=== PATIENT | female | born 1960 | race Caucasian/White ===

== ENCOUNTER 2017-02-08 07:35 | Emergency (ER) | payer MEDICAID, OTHER ==
[~2017-02-08] VITALS: Ht 167.6 cm; Wt 79.0 kg
[~2017-02-08 07:35] MED LIST: LISI-363 PO
[2017-02-08 07:36] VITALS: BP 175/101; PULSE 90; RESP 21; TEMP 97.7; O2SAT 98
--- NOTE | 2017-02-08 07:49 | PD ---
HPI . right upper arm pain x 1 week Chief Complaint: Pain: Acute or Chronic Time Seen by Provider: 07:48 Travel History International Travel<30 days: No Contact w/Intl Traveler<30days: No Traveled to known affect area: No History of Present Illness HPI 57 yr old female here c/o right upper arm pain x 1 week. She was seen at [facility], where she was dx with pinched nerve and given narcotic pain medication. She says she does not like narcotics and she is getting no relief for the medications. She has seen an urgent care a few times for this and was given toradol with minimal relief. She does not currently have a primary care provider. She denies any recent injury. She has no other complaints. [facility] Past Medical History Cancer: No Cardiovascular Problems: No Diabetes: No Hepatitis: No Hiatal Hernia: No Hypertension: Yes Thyroid Disease: No Past Surgical History Gynecologic Surgery: Yes (HYSTERECTOMY) Hysterectomy: Yes Other Surgery: Yes Social History Alcohol Use: No Tobacco Use: No Substance Use: No Allergies-Medications (Allergen,Severity, Reaction): Coded Allergies: No Known Allergies (Unverified , 05/31/14) Reported Meds & Prescriptions Reported Meds & Active Scripts Active Prednisone 50 Mg Tab 50 Mg PO DAILY Flexeril (Cyclobenzaprine HCl) 5 Mg Tab 5 Mg PO TID Reported Lisinopril 20 mg (Lisinopril) 20 Mg Tab 20 Mg PO DAILY Review of Systems General / Constitutional: No: Fever Eyes: No: Visual changes HENT: No: Headaches Cardiovascular: No: Chest Pain or Discomfort Respiratory: No: Shortness of Breath Gastrointestinal: No: Abdominal Pain Genitourinary: No: Dysuria Musculoskeletal: Positive: Pain (right arm) Skin: No Rash Neurologic: No: Weakness Psychiatric: No: Depression Endocrine: No: Polydipsia Hematologic/Lymphatic: No: Easy Bruising Physical Exam Narrative GENERAL: AAO x 3, no acute distress, Well-nourished, well-developed patient. SKIN: Warm and dry. No visible rashes or bruising. HEAD: Normocephalic and atraumatic. EYES: No scleral icterus. No injection or drainage. ENT: No nasal drainage noted. Mucous membranes pink. Airway patent. NECK: Supple, trachea midline. No JVD. tenderness in right side trapezius CARDIOVASCULAR: Regular rate and rhythm without murmurs, gallops, or rubs. RESPIRATORY: Breath sounds equal bilaterally. No accessory muscle use. No rhonchi or rales. GASTROINTESTINAL: visual inspection normal EXTREMITIES: No cyanosis or edema. FUll ROM b/l UE. BACK: Nontender without obvious deformity. No CVA tenderness. NEURO: CN II-12 intact, grounds/maintenance specialist strength normal b/l, UE and LE 5/5, PSYCH: AAO x 3, normal affect. Data Data Last Documented VS Vital Signs Date Time Temp Pulse Resp B/P Pulse Ox O2 Delivery O2 Flow Rate FiO2 02/08/17 08:11 20 02/08/17 07:36 97.7 90 175/101 98 Orders Orphenadrine Inj (Norflex Inj) (02/08/17 08:00) MDM Medical Decision Making Medical Screen Exam Complete: Yes Emergency Medical Condition: Yes Medical Record Reviewed: Yes Differential Diagnosis cervical strain, muscle strain, cervical radiculopathy Narrative Course 57 yr old female here with right arm pain. Her bp is elevated and likely related to increased pain. Exam reveals possible pinched nerve, cervical radiculopathy. Norflex for pain in the ED. Will discharge home with muscle relaxers and steroids. Discussed that she will need primary care. Advised f/u regarding bp and discussed she may need MRI imaging if this persists. Patient verbalized understanding of instructions, questions were answered, and thanked me for their care. I advised them if their condition worsens, please return to the nearest emergency room for further care. Prior to discharge, patient requesting a note for work as she missed over 1 week. I advised her that was something I could not do. Diagnosis Primary Impression: Right upper limb pain Patient Instructions: General Instructions Additional Instructions: Please return to emergency department if your symptoms return or worsen. Follow up with your primary care provider. Take medications as prescribed. Please follow your primary care doctor as you may need further workup and treatment. Your blood pressure was elevated, please follow-up with her primary care provider for blood pressure monitoring. Med/Other Pt SpecificInfo: Prescription(s) given Scripts Prednisone 50 Mg Tab50 Mg PO DAILY #5 TAB Prov:Leonel Rich MD 02/08/17 Cyclobenzaprine (Flexeril)5 Mg Tab5 Mg PO TID #21 TAB Prov:Leonel Rich MD 02/08/17 Disposition: 01 DISCHARGE HOME Condition: Stable Marilee Rios Feb 08, 2017 07:49
[2017-02-08] MEDS ORDERED: PRED50 PO (07:54)
[2017-02-08] MEDS ORDERED: CYCL5TAB PO (07:54)
[2017-02-08] MEDS ORDERED: ORPHENADRINE INJ 60 MG/2 ML AMP IM ONE (08:00)
== END 2017-02-08 09:02 | disposition home or self-care (01) ==
LOC: NEPK 07:35
DX: M79.601 Pain in right arm (principal); I10 Essential (primary) hypertension
CPT/HCPCS: 96372; 99284; J2360